=== PATIENT | male | born 1965 | race Caucasian/White ===

== ENCOUNTER 2017-12-11 11:45 | Inpatient (IN) ==
--- NOTE | 2017-12-11 06:48 | Discharge Summary ---
<Pepito Varela - Last Filed: 12/11/17 11:46> Orders not resulted at time of discharge: Pending orders 12/11/17 06:47 XR hip complete RT [XR] Routine H/H [Hemoglobin and Hematocrit] [HEME] Routine Date of Encounter: 12/11/17 - Discharge Diagnosis (1) Right hip pain Priority: Primary Status: Chronic (2) Status post total hip replacement, right Priority: Primary Status: Acute (3) Anticoagulated by anticoagulation treatment Priority: Secondary Status: Chronic (4) Arthritis of right hip Priority: Primary Status: Chronic (5) Bony metastasis Priority: Secondary Status: Chronic (6) History of DVT (deep vein thrombosis) Priority: Secondary Status: Chronic (7) Oral thrush Priority: Secondary Status: Acute (8) Prostate cancer Priority: Secondary Status: Chronic (9) Rheumatoid arthritis Priority: Secondary Status: Chronic Qualifiers: Rheumatoid arthritis location: unspecified site Rheumatoid factor presence : unspecified presence Qualified Code(s): M06.9 - Rheumatoid arthritis, unspecified (10) Tobacco abuse Priority: Secondary Status: Chronic - Hospital Course Hospital course: Mr. Black is a 52 year old male - Time Spent with Patient Total time spent providing and/or coordinating discharge services: - Discharge Medications Home Medications: ALPRAZolam [Xanax 1 MG Tablet] 1 mg PO TID 04/21/17 [History] Levothyroxine Sodium [Synthroid] 300 mcg PO DAILY 04/21/17 [History] Citalopram [CeleXA] 20 mg PO DAILY 05/04/17 [History] Ergocalciferol (VITAMIN D2) [Vitamin D2] 2,000 unit PO DAILY 05/10/17 [History] Folic Acid 1 mg PO DAILY 05/10/17 [History] HYDROcodone/Acet 10/325 mg [Osteen 10-325 mg] 1 tab PO Q6HR PRN 05/10/17 [History ] Apixaban [Eliquis] 5 mg PO BID #1 tab.ds.pk 09/26/17 [Rx] OxyCODONE ER (12 HR) [OxyCONTIN] 10 mg PO Q12HR 09/26/17 [History] Ascorbate Calcium [Vitamin C] 500 mg PO DAILY 11/02/17 [History] Turmeric Root Extract [Turmeric] 500 mg PO DAILY 11/02/17 [History] Baclofen 20 mg PO Q8H PRN 12/11/17 [History] Clotrimazole [Mycelex Jarrett] 10 mg MM TID 12/11/17 [History] Cyanocobalamin (Vitamin B-12) [Vitamin B-12] 100 mcg PO DAILY 12/11/17 [History] Diclofenac Sodium 1 appl TD QID PRN 12/11/17 [History] Gabapentin [Neurontin] 600 mg PO TID 12/11/17 [History] Nicotine Patch [Nicoderm] 21 mg TD DAILY 12/11/17 [History] Omeprazole [PriLOSEC] 20 mg PO DAILY 12/11/17 [History] Varenicline Tartrate [Chantix Continuing Months Pack] 1 tab PO BID 12/11/17 [ History] predniSONE [PredniSONE] 5 mg PO BID 12/11/17 [History] Allergies/Adverse Reactions: 3 Allergy/AdvReac Type Severity Reaction Status Date / Time No Known Allergies Allergy Verified 12/11/17 13:01 Primary care physician: Rani Garcia CNP - Patient Status Disposition: Home, Self-Care Condition: Good - Discharge Instructions Follow Up With: Tami Mckenna, STACIE [Physician Oil [employer]] - 12/21/17 8:45 am Rani Garcia CNP [Primary Care Provider] - Additional Instructions: Discharge Instructions: Total Hip Replacement Please call [facility] ([phone]), your Primary Care Physician, or report to the Emergency Room if you have any of the following symptoms: Nausea, vomiting, fever greater that 101.5, swelling, chest pain, shortness of breath, increased pain/redness/drainage/odor for your incision site, numbness/ tingling, or any other concerning symptoms. ACTIVITY:Weight-bearing as tolerated for 8 weeks with hip dislocation precautions that physical therapy taught you. You may progress as tolerated under the guidance of your physical therapist. You do not need to sleep with a pillow between your legs. You can also seep on the operative side or on your stomach. Incentive Spirometer 10 times an hour. MEDICATIONS: Upon discharge resume your home medications. Take all the medications as prescribed. Take a stool softener if taking narcotic pain medications. Stool softeners are only effective if you drink enough fluids. Drink 6-8 glass of water or fluids a day, unless this is not allowed for another health problem. Despite using stool softeners, if you haven't had a bowel movement in 3 days, please switch to a gentle laxative. Gentle laxatives are sold over the counter. You should have a bowel movement within 24 hours, if not call the office. You will be discharged from the hospital with a prescription for pain medication. You are encouraged to decrease the use of narcotic pain medication as tolerated. Should you require a refill, please call the office. [facility] prescribes narcotic pain medication for only 4-6 weeks after surgery. If you require pain medication beyond this time period, you may be referred to your Primary Care Physician or to the Pain Clinic for further evaluation. Plan ahead for refills on pain medication as many narcotics either need to be picked up at the office or mailed. It is best to call 48-72 hours in advance of needing a prescription refill so you don't run out of medication. To help control the post-operative pain, you may take NSAIDs (Aleve,Advil, Motrin, ibuprofen, naprosyn) or Tylenol as prescribed on the bottle in addition to the pain medication. ANTICOAGULATION (blood thinners): Continue your Aspirin, Lovenox or Coumadin as prescribed to help prevent a blood clot in the leg or in the lungs. As long as your incision remains dry and you tolerate the NSAIDs (Aleve, Advil, Motrin, Ibuprofen, Naprosyn), it is OK to use the NSAIDS while you are taking your anticoagulation medication. Should your incision start to drain, stop the NSAID and contact our office. Common symptoms of blood clot in the legs include: localized pain, swelling, calf tenderness, redness or discoloration of the skin. Blood clot in the lung symptoms include: shortness of breath, rapid pulse, sweating, and chest pain that worsens with deep breathing, coughing up blood, lightheadedness, feelings of anxiety. If you experience any of these symptoms notify your physician immediately, go to the emergency room, or if having trouble breathing, call 911. WOUND CARE: Leave the dressing on for 7 to 10days. You may change the dressing if it is saturated greater than 50%. Do not get the dressing wet at anytime. Wash your hands with antibacterial soap, rinse and dry prior to any wound care. If you have sheila the visiting nurse or rehab facility can remove the stapes 10-14 days after surgery and place steri-strips across the wound. Leave the steri-strips in place until they fall off on their own. You may let water from the shower run on top of the steri-strips. If you do not have a visiting nurse or rehab facility, you will need to return to the office at 10-14 days for the sheila to be removed. If you have itching or redness around the dressing call the office. FOLLOW-UP: Please follow up with your surgeon in the orthopedic clinic in 6 weeks from the day of surgery. If you have sheila that need to be removed, you will need to come back to the office in 10-14 days from the day of surgery. <Tami Mckenna - Last Filed: 12/12/17 17:34> Orders not resulted at time of discharge: Pending orders 12/11/17 06:47 XR hip complete RT [XR] Routine H/H [Hemoglobin and Hematocrit] [HEME] Routine Date of Encounter: 12/12/17 Time of Encounter: 17:31 - Discharge Diagnosis (1) Status post total hip replacement, right Priority: Primary Status: Acute (2) Metastatic bone cancer Priority: Secondary Status: Chronic (3) Arthritis of right hip Priority: Secondary Status: Chronic (4) Tobacco abuse Priority: Secondary Status: Chronic (5) History of DVT (deep vein thrombosis) Priority: Secondary Status: Chronic Comments: Diagnosed 2 and 1/2 months ago, taking Eliquis. Eliquis was held 24 hours prior to surgery. Patient to resume Eliquis same day of surgery. 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 (6) Anticoagulated by anticoagulation treatment Priority: Secondary Status: Chronic (7) Rheumatoid arthritis Priority: Secondary Status: Chronic Qualifiers: Rheumatoid arthritis location: unspecified site Rheumatoid factor presence : unspecified presence Qualified Code(s): M06.9 - Rheumatoid arthritis, unspecified (8) Oral thrush Priority: Secondary Status: Acute Comments: Continue planned treatment* (9) Prostate cancer Priority: Secondary Status: Chronic - Hospital Course Hospital course: status post Right THR 12/12- . Patient had uneventful postoperative course. Stable for discharge. Patient seen at bedside, without complaints. A&O x 3 Afebrile, vital signs stable. Vital Signs Temp Pulse Resp BP Pulse Ox 12/12/17 11:18 98.9 F 95 18 123/78 95 12/12/17 07:25 98.2 F 99 16 128/84 97 12/12/17 04:33 98.1 F 83 16 109/71 94 12/11/17 23:47 97.8 F 78 16 125/79 93 12/11/17 18:12 97.9 F 76 14 129/79 93 12/11/17 17:36 97.6 F 77 15 112/71 91 Intake and Output 12/12/17 12/12/17 12/12/17 07:59 15:59 23:59 Intake Total 240 / 240 Output Total 800 / 800 Balance -800 / -800 240 / 240 Intake: Oral 240 / 240 Output: Urine 800 / 800 Other: Meal Breakfast Percent of Meal Consumed 100% Labs reviewed. H/H - stable, asymptomatic Short CBC 12/12/17 Range/Units 01:40 Hgb 13.2 (12.9-16.9) g/dL Hct 40.2 (37.5-50.1) % BMP 12/12/17 Range/Units 01:40 Sodium 139 (136-145) mEq/L Potassium 4.2 (3.5-5.1) mEq/L Chloride 109 H (98-107) mEq/L Carbon Dioxide 24 (23-29) mEq/L BUN 14 (6-20) mg/dL Creatinine 0.77 (0.70-1.30) mg/dL Glucose 153 H (70-105) mg/dL Calcium 8.4 L (8.6-10.3) mg/dL Pain control: adequate Added Lidocane patch, will send PA for Flector patch Participating in PT. All questions and concerns addressed. Educated on use of incentive spirometer. Encouraged ambulation and proper hydration. Patient educated on post-operative restrictions and post-operative care. Assessment and plan: Continue with postoperative care Discharge plan: Home with OP , discharge today - Time Spent with Patient Total time spent providing and/or coordinating discharge services: Date of admission: 12/12 Primary care physician: Rani Garcia CNP Anticipated date of discharge: 12/12/17 - Patient Status Functional capacity at discharge: uses cane/walker Overall status at discharge: patient is back to baseline - Diet and Activity Diet: advance to your usual diet
--- NOTE | 2017-12-11 11:46 | History & Physical Report ---
Date of Encounter: 12/11/17 Time of Encounter: 11:46 24 Hour HP Update - Instructions Instructions: If the History and Physical is less than 30 days old and was completed prior to A.M. admission and or procedure and has NOT been updated on calendar day of procedure please complete this update prior to performing procedure. - Update Patient reports changes in Medical Condition: No Changes in examination, assessment, or condition: No Changes in Medication: No Preop tests/diagnostics Reviewed: Yes Surgery Remains Indicated: Yes Consent for Planned Operative Procedure(s) Verified: Yes - Pre-Operative Checklist Preoperative Checklist Indicated: No Prophylactic Antibiotic Ordered: Yes Is VTE Prophylaxis Indicated?: Yes
[2017-12-11] MEDS ORDERED: Famotidine 20 MG/2 ML VIAL IVP ONE (11:53)
[2017-12-11] MEDS ORDERED: Acetaminophen IV 1,000 MG/100 ML INFUS..BTL IVPB ONE (11:54)
[2017-12-11] MEDS ORDERED: Ringers Solution, Lactated 1,000 ML IVC SCH ×2 (12:00→16:49)
[2017-12-11] MEDS ORDERED: CeFAZolin Syr 2,000MG/20 ML 2,000 MG/20 ML SYRINGE IVPB ONE (12:14)
[2017-12-11] MEDS ORDERED: Albuterol 2.5 MG/3 ML NEBULIZER IH ONE (12:14)
[2017-12-11] MEDS ORDERED: ROPIVACAINE HCL/PF 0.5% 30 ML VIAL ONE (12:22)
[2017-12-11] MEDS ORDERED: Lidocaine -MPF 1% 5 ML AMPUL ONE (12:22)
[2017-12-11] MEDS ORDERED: Pregabalin 75 MG CAPSULE PO ONE ×2 (12:30→16:49)
--- NOTE | 2017-12-11 12:33 | Anesthesia Evaluation PreOp ---
Date of Encounter: 12/11/17 Time of Encounter: 12:30 - Past History Planned Operation: Rt THR Cardiac History: Denies any Significant Hx, Other (Raynaud's) Pulmonary History: Smoker DIAMOND SIZER History: Denies Any Significant HX Other Medical History: Thyroid Alcohol Use: none Drug use: none Medications and Allergies Gabapentin [Neurontin] 2 tab PO DAILY 04/29/15 [History] ALPRAZolam [Xanax 1 MG Tablet] 1 mg PO TID 04/21/17 [History] Levothyroxine Sodium [Synthroid] 300 mcg PO DAILY 04/21/17 [History] Citalopram [CeleXA] 20 mg PO DAILY 05/04/17 [History] Clotrimazole 1% CRM [Lotrimin 1%] 1 appl TP BID 05/10/17 [History] Ergocalciferol (VITAMIN D2) [Vitamin D2] 2,000 unit PO DAILY 05/10/17 [History] Folic Acid 1 mg PO DAILY 05/10/17 [History] HYDROcodone/Acet 10/325 mg [[place] 10-325 mg] 1 tab PO Q6HR PRN 05/10/17 [History ] Omeprazole [PriLOSEC] 1 tab PO DAILY #30 cap 05/10/17 [Rx] Vitamin B Complex [B Complex] 1 each PO DAILY 05/10/17 [History] Clotrimazole/Betamethasone Dip [Lotrisone Cream] 1 appl TP TID #15 cream..g. [Rx] Cyclobenzaprine [Flexeril] 1 tab PO TID #15 tablet 06/29/17 [Rx] Apixaban [Eliquis] 5 mg PO BID #1 tab.ds.pk 09/26/17 [Rx] Ibuprofen [Motrin] 400 mg PO Q8HR #12 tablet 09/26/17 [Rx] OxyCODONE ER (12 HR) 10 mg PO Q12H 09/26/17 [History] predniSONE [PredniSONE] 1 tab PO BID #60 tablet 10/26/17 [Rx] Ascorbate Calcium [Vitamin C] 500 mg PO DAILY 11/02/17 [History] Fexofenadine/Pseudoephedrine [Mikaela-D 12 Hour Tablet] 1 each PO DAILY [History] Turmeric Root Extract [Turmeric] 500 mg PO DAILY 11/02/17 [History] Fluconazole [Diflucan] 100 mg PO DAILY 11/30/17 [History] Nystatin [Nystatin Suspension] 100,000 units PO QID 11/30/17 [History] 3 Allergy/AdvReac Type Severity Reaction Status Date / Time No Known Allergies Allergy Verified 12/06/17 11:37 - Meds/Allergy Pre-op Review Medications Reviewed: Yes Allergies Reviewed: Yes Beta Blockers on Current Med List: No Anesthesia Results - Labs Laboratory Tests 11/30/17 12/06/17 09:07 12:00 Hgb 14.0 Hct 42.3 Plt Count 174 Sodium 139 Potassium 3.6 BUN 14 Creatinine 0.88 Anesthesia Exam O2 Sat Height 1.8 m Height 1.8 m Weight 101.605 kg Weight 101.605 kg O2 Sat by Pulse Oximetry 95 Vital Signs Temp Pulse Resp BP Pulse Ox 98.1 F 82 18 127/67 95 12/11/17 12:08 12/11/17 12:08 12/11/17 12:08 12/11/17 12:08 12/11/17 12:08 Height: 5'11 Weight: 224 lbs NPO (# of Hours): MN Pain Scale: 0 - HEENT Pupil (Motor): Pupils equal, EOMI Mallampati: II Oral Opening: Greater than 3 - DIAMOND SIZER LOC: Oriented DIAMOND SIZER Motor: Normal RUE, Normal LUE, Normal RLE, Normal LLE, Normal Face DIAMOND SIZER Sensory: Normal: RUE, LUE, RLE, LLE, Face - Cardiac Rhythm: Regular Murmur: None JVD: No Carotid Bruit: No - Pulmonary Breath Sounds: bilateral Clear Respiratory Effort: Symmetrical Anesthesia Assess/Plan ASA Score: 2 Modified [place] Scale for Level of Consciousness: Cooperative, oriented, and tranquil Anesthetic Plan: General, Regional Monitoring Plan: Standard Monitors Recovery Plan: PACU (Discussed GA and Fascia Iliaca Block,agrees to proceed)
[2017-12-11] MEDS ORDERED: Ethanol\\Acetic Acid\\Na Ace\\Ben 1,000 ML IRRIG.SOLN IR ONE (12:43)
[2017-12-11] MEDS ORDERED: *HR* OxyCODONE Immed Rel 5 MG TABLET PO PRN (13:00)
[2017-12-11] MEDS ORDERED: *HR* Labetalol 20 MG/4 ML SYRINGE IVP PRN (13:00)
[2017-12-11] MEDS ORDERED: *HR* Promethazine 25 MG/ML VIAL IVP PRN (13:00)
--- NOTE | 2017-12-11 13:40 | Anesthesia Procedures ---
Date of Encounter: 12/11/17 Time of Encounter: 12:30 Procedures: Anesthesia - Nerve Block Procedure Date: 12/11/17 Time: 13:15 Pre-op Diagnosis: Osteoarthritis Surgical Procedure: Total Hip Replacement Checklist: Correct Patient Identifier Correct side: Right Blood Thinner: No Monitor Applied: EKG, BP, Pulse Oximetry Supplemental Oxygen via Nasal Cannula (L/min): 2 Sedation: Versed (mg): 2 Sedation: Fentanyl (mcg): 100 Indication: Post Op Analgesia Pre-op Neuro Deficits: No Block Type: Other (Fascia Iliaca) Catheter placed: No Depth at skin (cm): 2 Sterile Technique: Yes Ultrasound used: Yes Anatomy identified: Yes Visual spread of Local: Yes Neuro Stimulation: No Blood on Needle Aspiration: No Smooth Injection of Local: Yes Pain with Injection of Local: No Prep: Chlorhexadine Needle: 22 x 50 mm Stimuplex Local: Ropivacaine, Other (Dexamethasone) Volume (cc): 60 Number of Attempts: 1 Complications: None/effective block Vitals: Vital Signs/O2 Sat/Glucose, Most Current Temp Pulse Resp BP Pulse Ox 12/11/17 13:14 92 118/73 93 12/11/17 13:03 18 127/67 95 12/11/17 12:08 98.1 F 82 18 127/67 95
--- NOTE | 2017-12-11 14:33 | Orthopedic Operative Note ---
Date of procedure: 12/11/17 Pre-op diagnosis: Right hip metastatic cancer degenerative arthritis Post-op diagnosis: same Procedure: Procedure: Right Total Hip Replacment robotic-assisted Estimated blood loss: 300 cc Hardware: Metal and polyethylene replacement. [place] DM Cup: 58 cup Femoral 9 size stem Head: 12 head with Dawn Procedural Notes: Degenerative changes femoral head acetabular socket, procedure performed with robotic assistance. Operative leg 1 mm short compared to nonoperative leg is measured by preoperative CT scan Operative procedure: The patient was brought to the operating room and placed on the operating room table. After general anesthesia was administered the patient was placed in the lateral decubitus position with the operative leg up. All pressure points were padded appropriately and the head was stabilized in the neutral position. The operative extremity was prepped and draped in the sterile surgical fashion patient received IV antibiotic prior to skin incision. 3 Steinmann pins were placed in the iliac crest 3 cm proximal to the anterior superior iliac spine this was for the robotic-assisted sensor. This was done through a small 2 cm incision. A standard posterior approach is made to the operative hip, the incision was made through the skin and subcutaneous tissue hemostasis was obtained with Bovie cautery. Using careful sharp dissection the fascia was identified and incised exposing the external rotators. The femoral checkpoint was placed leg length was measured at this time utilizing robotic assistance. The external rotators were released off the greater trochanter and tagged with # 2 FiberWire suture. The capsule was T'd open and the hip was brought into internal rotation. Patient noted to have grade degenerative changes femoral head. The femoral neck cut was made at the appropriate level roughly 11 mm proximal to the lesser trochanter aced on preoperative templating. An anterior capsulotomy was performed for the anterior retractor. Soft tissues removed from the acetabulum. Patient noted to have degenerative changes acetabulum. The acetabulum checkpoint was placed confirmed. The acetabulum was then mapped with robotic assistance. Based on the preoperative plan the acetabulum was reamed in one step with a 57 reamer. The 58 acetabulum was impacted with robotic assistance and 41 degrees of abduction and 28 degrees of anteversion. The hip was brought back in to internal rotation and prepared with the aging box hand followed by the canal finder followed by the reaming process to a size 9/ 10broaching process in 20 degrees anteversion. It was broached up to the appropriate size 9. Trial reduction revealed leg lengths close to normal. The femoral implant was impacted in place in 20 degrees of anteversion. Trial reduction found the hip to be stable with 12 head and Dawn. The trials were removed and the real implants were impacted in place. The hip was reduced, patient had robotic confirmed leg length of 6 mm longer than the contralateral side. The hip had excellent stability with forward flexion to 90 degrees adduction of 30 degrees and internal rotation of 60 degrees. The hip had no shuck. The hips after 2 minutes with a antibacterial solution. It was irrigated out with 2 L of pulse irrigation. The checkpoints were removed, Steinmann pins were removed. The hip was closed by the PA. The deep tissue was irrigated and closed deep with #1 PDS suture superficially with 0 PDS suture and skin was closed with Dermabond and zip tie. The patient was placed in a sterile dressing and abduction pillow. The patient was extubated and transferred to the recovery room in stable condition. Anesthesia: GETA Surgeon: Pepito Varela Was there an nurseryman assistant present: Yes Printing Supplies Sales Representative: Tami Mckenna Estimated blood loss (cc): 300 Condition: stable Disposition: PACU
[2017-12-11] MEDS: *HR* HYDROmorphone (PF) 1 MG/ML SYRINGE IVP PRN ×6 (15:15→15:55)
[2017-12-11 15:41] LABS: Hematocrit 41.8 % (37.5-50.1); Hemoglobin 13.4 g/dL (12.9-16.9)
--- NOTE | 2017-12-11 16:08 | Anesthesia Evaluation Post Op ---
Date of Encounter: 12/11/17 Time of Encounter: 16:00 - Vital Signs Vital Signs: Vital Signs/O2 Sat/Glucose, Most Current Temp Pulse Resp BP Pulse Ox 12/11/17 15:57 91 16 123/87 94 12/11/17 15:47 87 16 135/84 94 12/11/17 15:37 98.2 F 88 16 133/89 94 12/11/17 15:27 86 16 138/86 96 12/11/17 15:17 91 16 138/84 94 12/11/17 15:07 98.7 F 83 16 132/88 99 12/11/17 13:14 92 118/73 93 12/11/17 13:03 18 127/67 95 12/11/17 12:08 98.1 F 82 18 127/67 95 - Lungs Lungs: Clear Ascult./Percussion - Airway Airway: Non-obstructed - Cardiovascular Regular Rate - Mental Status Mental Status: Alert & Oriented, Answers Appropriately - Pain Pain Scale: 0 - Nausea Vomiting Nausea Vomiting: Not Present - Hydration Hydration: Tolerates oral liquids - Discharge PostOp Status: Discharge Patient to home
[2017-12-11] MEDS ORDERED: Baclofen 10 MG TABLET PO PRN (16:49)
[2017-12-11] MEDS ORDERED: *HR* OxyCODONE/APAP 5/325 TABLET PO PRN (16:49)
[2017-12-11] MEDS ORDERED: Temazepam 15 MG CAPSULE PO PRN (16:49)
[2017-12-11] MEDS ORDERED: Sennosides 8.6 MG TABLET PO PRN (16:49)
[2017-12-11] MEDS ORDERED: traMADol 50 MG TABLET PO PRN (16:49)
[2017-12-11] MEDS ORDERED: MOM Conc 10 ML UD.LIQ PO PRN (16:49)
[2017-12-11] MEDS ORDERED: Ondansetron 4 MG/2 ML VIAL IVP PRN (16:49)
[2017-12-11] MEDS ORDERED: Naloxone 0.4 MG/ML INJ IVP PRN (16:49)
[2017-12-11] MEDS ORDERED: Ascorbic Acid 500 MG TABLET PO SCH (17:00)
[2017-12-11] MEDS: ALPRAZolam 1 MG TABLET PO SCH ×2 (17:35→20:41)
[2017-12-11] MEDS: *HR* OxyCODONE ER (12 HR) 10 MG TABLET PO SCH (18:03)
[2017-12-11] MEDS: predniSONE 5 MG TABLET PO SCH (18:04)
[2017-12-11] MEDS: Gabapentin 300 MG CAPSULE PO SCH (20:41)
[2017-12-11] MEDS: Apixaban 5 MG TABLET PO SCH (20:41)
[2017-12-12 02:11] LABS: Hematocrit 40.2 % (37.5-50.1); Hemoglobin 13.2 g/dL (12.9-16.9)
[2017-12-12 02:34] LABS: BUN/Creatinine Ratio 18 (6-26); Blood Urea Nitrogen 14 mg/dL (6-20); Calcium 8.4 mg/dL (8.6-10.3); Carbon Dioxide 24 mEq/L (23-29); Chloride 109 mEq/L (98-107); Glucose 153 mg/dL (70-105); Osmolality,Calculated 292 (280-300); Potassium 4.2 mEq/L (3.5-5.1); Sodium 139 mEq/L (136-145); eGFR For Non-African Americans > 60 (> 60)
[2017-12-12] MEDS: *HR* OxyCODONE Immed Rel 5 MG TABLET PO PRN ×3 (04:11→14:36)
[2017-12-12] MEDS: *HR* OxyCODONE ER (12 HR) 10 MG TABLET PO SCH (06:48)
--- NOTE | 2017-12-12 06:55 | Orthopedics Progress Note ---
Date of Encounter: 12/12/17 Time of Encounter: 06:55 - Assessment and Plan (1) Right hip pain Current Visit: No Status: Chronic (2) Status post total hip replacement, right Current Visit: No Status: Acute (3) Anticoagulated by anticoagulation treatment Current Visit: No Status: Chronic (4) Arthritis of right hip Current Visit: No Status: Chronic (5) Bony metastasis Current Visit: No Status: Chronic (6) History of DVT (deep vein thrombosis) Current Visit: No Status: Chronic (7) Oral thrush Current Visit: No Status: Acute (8) Prostate cancer Current Visit: No Status: Chronic (9) Rheumatoid arthritis Current Visit: No Status: Chronic Qualifiers: Rheumatoid arthritis location: unspecified site Rheumatoid factor presence : unspecified presence Qualified Code(s): M06.9 - Rheumatoid arthritis, unspecified (10) Tobacco abuse Current Visit: No Status: Chronic Subjective Interval history: Patient was seen this morning doing well without complaints. Afebrile vital signs stable. Operative extremity: Neurovascularly intact Dressing clean dry and intact Calves nontender Assessment and plan: Continue with postoperative care Hematocrit 40 discharged today Objective Vital signs: Vital Signs Temp Pulse Resp BP Pulse Ox 12/12/17 04:33 98.1 F 83 16 109/71 94 12/11/17 23:47 97.8 F 78 16 125/79 93 12/11/17 18:12 97.9 F 76 14 129/79 93 12/11/17 17:36 97.6 F 77 15 112/71 91 12/11/17 16:35 97.9 F 97 17 115/72 92 12/11/17 16:15 97.8 F 88 16 120/78 94 12/11/17 16:07 97.9 F 88 16 117/82 93 12/11/17 15:57 91 16 123/87 94 12/11/17 15:47 87 16 135/84 94 12/11/17 15:37 98.2 F 88 16 133/89 94 12/11/17 15:27 86 16 138/86 96 12/11/17 15:17 91 16 138/84 94 12/11/17 15:07 98.7 F 83 16 132/88 99 12/11/17 13:14 92 118/73 93 12/11/17 13:03 18 127/67 95 08/20/18 12:08 98.1 F 82 18 127/67 95 Intake and Output 12/11/17 12/11/17 12/12/17 15:59 23:59 07:59 Intake Total 550 / 550 Output Total 300 / 300 400 / 400 800 / 800 Balance -280 / -280 150 / 150 -800 / -800 Intake: IV Fluids 20 / 20 100 / 100 Ancef Syringe 2,000 MG/20 ML 2, 20 / 20 000 mg In 20 ml @ 200 mls/hr IVPB PREOP ONE Rx#:[id number] Ancef 2,000 MG In 0.9 % Sodium 100 / 100 Chloride 100 ML @ 200 mls/hr IVPB Q8H JOEY Rx#:[id number] Oral 450 / 450 Output: Urine 400 / 400 800 / 800 Estimated Blood Loss 300 / 300 Other: Weight 101.605 kg - Labs CBC & BMP: 12/12/17 01:40 12/12/17 01:40 Labs: Abnormal lab results Chloride 109 mEq/L (98-107) H 12/12/17 01:40 Glucose 153 mg/dL (70-105) H 12/12/17 01:40 Calcium 8.4 mg/dL (8.6-10.3) L 12/12/17 01:40 - VTE Documentation of Mechanical Device: Venous foot pump, device Consult Discharge Plan - Plan Referrals: Rani Garcia, HELPER DRIVER [Primary Care Provider] -
[2017-12-12] MEDS ORDERED: Nicotine 21 MG PATCH.TD24 TD PRN (09:00)
[2017-12-12] MEDS ORDERED: Folic Acid 1 MG TABLET PO SCH (09:00)
[2017-12-12] MEDS ORDERED: NON-FORMULARY MEDICATION 1 EACH EACH (Turmeric Root Extract [Turmeric] 500 MG) PO SCH (09:00)
[2017-12-12] MEDS ORDERED: Cyanocobalamin (B-12) 1,000 MCG TABLET PO SCH (09:00)
[2017-12-12] MEDS ORDERED: Cholecalciferol (D-3) 1,000 UNIT TABLET PO SCH (09:00)
[2017-12-12] MEDS ORDERED: Nicotine 21 MG PATCH.TD24 TD SCH (09:00)
[2017-12-12] MEDS ORDERED: Multivit/Ca/Min/Fe/FA 1 TAB TABLET PO SCH (09:00)
[2017-12-12] MEDS ORDERED: Ascorbic Acid 500 MG TABLET PO SCH (09:00)
[2017-12-12] MEDS: Gabapentin 300 MG CAPSULE PO SCH (09:16)
[2017-12-12] MEDS: Apixaban 5 MG TABLET PO SCH (09:17)
[2017-12-12] MEDS: ALPRAZolam 1 MG TABLET PO SCH (09:17)
[2017-12-12] MEDS: predniSONE 5 MG TABLET PO SCH (09:17)
[2017-12-12 11:19] VITALS: BP 123/78
== END 2017-12-12 15:08 | disposition home or self-care (01) | DRG 470 ==
LOC: SAMDAY 11:45 → 3NENU 16:18
PROVIDERS: ADMIT Orthopaedic Surgery; ATTEND Orthopaedic Surgery

== ENCOUNTER 2021-10-06 23:26 | Observation (INO) ==
[2021-10-07] MEDS ORDERED: Gadolinium Contrast Agent (WT Based) IV PRN (00:01)
[2021-10-07 00:59] LABS: Basophils % 0.2 %; Eosinophils % 0.2 %; Hematocrit 35.2 % (37.5-50.1); Hemoglobin 11.2 g/dL (12.9-16.9); Immature Granulocytes % 0.6 % (0-4); Lymphocytes # 1.7 K/mcL (0.6-4.6); Lymphocytes % 15.6 %; Mean Corpuscular HGB Conc 31.8 g/dL (31.6-35.5); Mean Corpuscular Hemoglobin 28.4 pg (28.0-33.3); Mean Corpuscular Volume 89.1 fL (83.0-100.0); Mean Platelet Volume 10.4 fL (9.4-12.4); Monocytes # 1.2 K/mcL (0.0-1.3); Monocytes % 10.6 %; Platelet Count 336 K/mcL (140-400); Red Blood Count 3.95 M/mcL (4.19-5.50); Segmented Neutrophils % 72.8 %; White Blood Count 10.9 K/mcL (4.3-11.1)
[2021-10-07 01:11] LABS: Alanine Aminotransferase 19 Units/L (7-52); Albumin 3.4 g/dL (3.5-5.7); Albumin/Globulin Ratio 0.9 (1.1-2.2); Alkaline Phosphatase 481 Units/L (34-104); Aspartate Amino Transferase 22 Units/L (13-39); BUN/Creatinine Ratio 10 (6-26); Bilirubin,Total 0.5 mg/dL (0.3-1.0); Blood Urea Nitrogen 8 mg/dL (6-20); C-Reactive Protein 240 mg/L (Less than 10); Carbon Dioxide 22 mEq/L (23-29); Chloride 101 mEq/L (98-107); Globulin 3.8 g/dL (2.4-3.5); Glucose 132 mg/dL (70-105); Osmolality,Calculated 272 (280-300); Potassium 3.7 mEq/L (3.5-5.1); Sodium 131 mEq/L (136-145); Total Protein 7.2 g/dL (6.4-8.9); eGFR For African Americans > 60 (> 60); eGFR For Non-African Americans > 60 (> 60)
[2021-10-07 01:41] LABS: Bilirubin,Urine Negative (Negative); Blood,Urine Negative (Negative); Clarity,Urine Clear (Clear); Color,Urine Light-Yellow (Yellow); Glucose,Urine (UA) Normal (Normal); Ketones,Urine Negative (Negative); Leukocyte Esterase,Urine Negative (Negative); Nitrite,Urine Negative (Negative); PH,Urine 6.5 pH Units (5.0-8.0); Protein,Urine Negative (Neg-Trace); Specific Gravity,Urine 1.008 (1.010-1.025); Urobilinogen,Urine Normal (Normal)
[2021-10-07] MEDS ORDERED: cefTRIAXone 2,000 MG in 0.9 % Sodium Chloride 20 ML IVP ONE (01:47)
[2021-10-07] MEDS ORDERED: 0.9 % Sodium Chloride 1,000 ML IV ONE ×2 (01:48→01:49)
[2021-10-07] MEDS ORDERED: Vancomycin 1,500 MG/265 ML IV.SOLN IVPB ONE ×2 (01:48→17:00)
[2021-10-07] MEDS ORDERED: Iopamidol - 370 500 ML MLS IVP ONE (03:43)
[2021-10-07] MEDS ORDERED: 0.9 % Sodium Chloride 500 ML IV ONE (03:50)
[2021-10-07] MEDS ORDERED: *HR* HYDROmorphone (PF) 1 MG/ML SYRINGE IVP ONE ×2 (05:07→07:24)
[2021-10-07 05:45] LABS: Adenovirus Not Detected (Not Detect); Bordetella Pertussis Not Detected (Not Detect); Chlamydophila pneumoniae Not Detected (Not Detect); Coronavirus 229E Not Detected (Not Detect); Coronavirus HKU1 Not Detected (Not Detect); Coronavirus NL63 Not Detected (Not Detect); Coronavirus OC43 Not Detected (Not Detect); Human Metapneumovirus Not Detected (Not Detect); Human Rhinovirus/Enterovirus Not Detected (Not Detect); Influenza A Subtype 2009 H1 Not Detected (Not Detect); Influenza B Not Detected (Not Detect); Mycoplasma pneumoniae Not Detected (Not Detect); Parainfluenza Virus 1 Not Detected (Not Detect); Parainfluenza Virus 2 Not Detected (Not Detect); Parainfluenza Virus 3 Not Detected (Not Detect); Parainfluenza Virus 4 Not Detected (Not Detect); Respiratory Syncytial Virus Not Detected (Not Detect); SARS-CoV-2 Not Detected (Not Detect)
[2021-10-07] MEDS: Norepinephrine 4 MG/254 ML IV.SOLN IVC SCH (06:25)
[2021-10-07] MEDS ORDERED: Hydrocortisone Sodium Succ 100 MG/2 ML VIAL IVP ONE (07:48)
[2021-10-07] MEDS ORDERED: 0.9 % Sodium Chloride 1,000 ML IVC ONE (07:49)
[2021-10-07] MEDS ORDERED: *HR* FentaNYL (PF) 100 MCG/2 ML VIAL IVP PRN (10:42)
[2021-10-07] MEDS ORDERED: Acetaminophen 325 MG TABLET PO PRN (11:09)
[2021-10-07] MEDS ORDERED: methocarbamoL 750 MG TABLET PO PRN (11:09)
[2021-10-07] MEDS: *HR* HYDROcodone/Acet 10/325 mg TABLET PO PRN ×2 (11:43→17:31)
[2021-10-07] MEDS ORDERED: predniSONE 20 MG TABLET PO SCH (13:45)
[2021-10-07] MEDS ORDERED: Naloxone 0.4 MG/ML INJ IVP PRN (13:47)
[2021-10-07] MEDS ORDERED: Ondansetron 4 MG/2 ML VIAL IVP PRN (13:47)
[2021-10-07] MEDS ORDERED: Piperacillin/Tazobactam 3.375 GM in 0.9 % Sodium Chloride Mini Bag 100 ML IVPB SCH (17:00)
[2021-10-07 18:53] VITALS: TEMP 98.6
[2021-10-08] MEDS: Norepinephrine 4 MG/254 ML IV.SOLN IVC SCH (00:02)
[2021-10-08] MEDS: predniSONE 20 MG TABLET PO SCH ×2 (00:10→08:44)
[2021-10-08] MEDS: *HR* HYDROcodone/Acet 10/325 mg TABLET PO PRN ×2 (00:10→08:43)
[2021-10-08] MEDS: Piperacillin/Tazobactam 3.375 GM in 0.9 % Sodium Chloride Mini Bag 100 ML IVPB SCH ×2 (00:12→08:42)
[2021-10-08 02:04] LABS: Basophils % 0.4 %; Eosinophils # 0.1 K/mcL (0.0-0.6); Eosinophils % 0.6 %; Hematocrit 31.3 % (37.5-50.1); Hemoglobin 9.7 g/dL (12.9-16.9); Immature Granulocytes % 0.8 % (0-4); Lymphocytes # 1.2 K/mcL (0.6-4.6); Lymphocytes % 14.9 %; Mean Corpuscular Volume 90.2 fL (83.0-100.0); Mean Platelet Volume 10.1 fL (9.4-12.4); Monocytes % 12.9 %; Neutrophils # 5.6 K/mcL (1.6-8.9); Platelet Count 295 K/mcL (140-400); Red Blood Count 3.47 M/mcL (4.19-5.50); Segmented Neutrophils % 70.4 %; White Blood Count 7.9 K/mcL (4.3-11.1)
[2021-10-08 02:26] LABS: BUN/Creatinine Ratio 11 (6-26); Blood Urea Nitrogen 5 mg/dL (6-20); Calcium 7.3 mg/dL (8.6-10.3); Carbon Dioxide 20 mEq/L (23-29); Chloride 107 mEq/L (98-107); Glucose 102 mg/dL (70-105); Osmolality,Calculated 277 (280-300); Potassium 3.4 mEq/L (3.5-5.1); Sodium 135 mEq/L (136-145); eGFR For African Americans > 60 (> 60); eGFR For Non-African Americans > 60 (> 60)
[2021-10-08] MEDS ORDERED: Vancomycin 1,500 MG/265 ML IV.SOLN IVPB SCH ×2 (06:00→14:00)
[2021-10-08 07:15] VITALS: O2SAT 99
[2021-10-08] MEDS ORDERED: Potassium Chloride Elixir 20 MEQ/15 ML UDC PO ONE (10:10)
[2021-10-08] MEDS ORDERED: Fluticasone Propionate Nasal 50 MCG/SPRAY BOTTLE NS PRN (10:29)
[2021-10-08] MEDS ORDERED: Cyanocobalamin (B-12) 1,000 MCG TABLET PO SCH (11:00)
[2021-10-08 11:19] VITALS: BP 128/65; PULSE 101
[2021-10-08] MEDS ORDERED: *HR* Heparin 5,000 UNIT/ML VIAL SQ SCH (18:00)
[2021-10-09] MEDS ORDERED: modafiniL 100 MG TABLET PO SCH (09:00)
[2021-10-09] MEDS ORDERED: Cholecalciferol (D-3) 1,000 UNIT (25MCG) TABLET PO SCH (09:00)
[2021-10-09] MEDS ORDERED: Folic Acid 1 MG TABLET PO SCH (09:00)
== END 2021-10-08 15:03 | disposition home or self-care (01) ==
LOC: EMEROOARM 23:26 → 2NNU 10-07 17:15 → INTOOBSV 10-07 17:15 → 2NNU 10-07 18:40
PROVIDERS: ADMIT Student in an Organized Health Care Education/Training Program; ATTEND Student in an Organized Health Care Education/Training Program